=== PATIENT | female | born 1960 | race Caucasian/White ===

== ENCOUNTER 2017-03-22 05:21 | Inpatient (IN) | payer MEDICAID ==
[2017-03-22] MEDS ORDERED: Acetaminophen 500 MG Tab PO ONE (05:30)
[2017-03-22] MEDS ORDERED: Celecoxib 200 MG Cap PO ONE (05:30)
[2017-03-22] MEDS ORDERED: Dextrose 5%-Lactated Ringers 1,000 ML IV SCH (06:00)
[2017-03-22] MEDS ORDERED: Rocuronium 50 MG/5 ML Vial ONE ×2 (06:03→09:41)
[2017-03-22] MEDS ORDERED: Propofol 200 MG/20 ML SDV ONE (06:03)
[2017-03-22] MEDS ORDERED: Ondansetron 4 MG/2 ML SDV ONE (06:03)
[2017-03-22] MEDS ORDERED: Neostigmine Methylsulfate 1 MG/ML 5 ML Syringe ONE (06:03)
[2017-03-22] MEDS ORDERED: Succinylcholine 200 MG/10 ML MDV ONE (06:03)
[2017-03-22] MEDS ORDERED: Glycopyrrolate 0.2 MG/ML 5 ML MDV ONE (06:03)
[2017-03-22] MEDS ORDERED: Dexamethasone 4 MG/ML SDV ONE (06:03)
[2017-03-22] MEDS ORDERED: Meropenem 500 MG SDV ONE (06:55)
[2017-03-22] MEDS ORDERED: HYDROmorphone/Normal Saline 15 MG/30 ML PCA IV PRN (07:40)
[2017-03-22] MEDS ORDERED: Naloxone 0.4 MG/ML SDV IVPUSH PRN (07:40)
[2017-03-22] MEDS ORDERED: Ketamine 500 MG/5 ML MDV IV SCH (07:45)
[2017-03-22] MEDS ORDERED: Meropenem 500 MG in Sodium Chloride 0.9% 50 ML IV ONE (07:45)
[2017-03-22] MEDS ORDERED: Lidocaine 2% 100 MG/5 ML Syringe IVPUSH ONE (07:45)
[2017-03-22] MEDS ORDERED: Scopolamine 1.5 MG Transdermal Patch ONE (08:31)
[2017-03-22] MEDS ORDERED: Lactated Ringers 1,000 ML ONE (10:01)
[2017-03-22] MEDS ORDERED: hydrOXYzine HCl 100 MG/2 ML SDV IM ONE (11:10)
[2017-03-22] MEDS ORDERED: fentaNYL 100 MCG/2 ML SDV IVPUSH ONE (11:13)
[2017-03-22] MEDS ORDERED: hydrOXYzine HCl 25 MG Tab PO PRN (12:23)
[2017-03-22] MEDS ORDERED: hydrOXYzine HCl 100 MG/2 ML SDV IM PRN (12:24)
[2017-03-22] MEDS ORDERED: Cyclobenzaprine 10 MG Tab PO PRN (12:24)
[2017-03-22] MEDS ORDERED: Ondansetron 4 MG/2 ML SDV IVPUSH PRN (12:25)
[2017-03-22] MEDS: Meropenem 500 MG in Sodium Chloride 0.9% 50 ML IV SCH ×2 (13:01→18:07)
[2017-03-22] MEDS: Famotidine 20 MG/2 ML SDV IV SCH (14:20)
[2017-03-22] MEDS: Lidocaine 0.4%/D5W 2 GM/500 ML BAG IV SCH (14:21)
[2017-03-22] MEDS: Acetaminophen 1,000 MG in Premix Bag 1 BAG IV SCH ×2 (14:21→19:55)
[2017-03-22] MEDS: Dextrose 5%-Lactated Ringers 1,000 ML IV SCH ×2 (16:09→22:54)
[2017-03-22] MEDS: VERIFY SCOPOLAMINE PATCH TOP SCH (16:09)
[2017-03-22] MEDS ORDERED: Albuterol/Ipratropium 3.0-0.5 MG/3 ML Neb Soln NEB PRN (21:02)
[2017-03-22] MEDS: Albuterol/Ipratropium 3.0-0.5 MG/3 ML Neb Soln NEB SCH (21:16)
[2017-03-23] MEDS: Lidocaine 0.4%/D5W 2 GM/500 ML BAG IV SCH (01:17)
[2017-03-23] MEDS: Famotidine 20 MG/2 ML SDV IV SCH ×2 (01:17→12:52)
[2017-03-23] MEDS: Meropenem 500 MG in Sodium Chloride 0.9% 50 ML IV SCH ×2 (01:17→06:17)
[2017-03-23] MEDS: Acetaminophen 1,000 MG in Premix Bag 1 BAG IV SCH (01:18)
[2017-03-23] MEDS: Dextrose 5%-Lactated Ringers 1,000 ML IV SCH (05:31)
[2017-03-23] MEDS: Albuterol/Ipratropium 3.0-0.5 MG/3 ML Neb Soln NEB SCH ×4 (07:11→20:46)
[2017-03-23] MEDS: Celecoxib 200 MG Cap PO SCH (08:04)
[2017-03-23] MEDS: Acetaminophen 500 MG Tab PO SCH ×3 (08:04→20:46)
[2017-03-23] MEDS: VERIFY SCOPOLAMINE PATCH TOP SCH (08:05)
[2017-03-23] MEDS ORDERED: Dextrose 5%-Lactated Ringers 1,000 ML IV SCH (08:50)
[2017-03-23] MEDS ORDERED: Nicotine 14 MG/24 Hr Patch TRDERM PRN (08:54)
[2017-03-23] MEDS ORDERED: Nicotine Polacrilex 2 MG Gum CHEW PRN (08:55)
[2017-03-23] MEDS ORDERED: Benzocaine/Cetylpyridinium/Menthol Lozenge MUCMEM PRN (08:57)
[2017-03-23] MEDS ORDERED: Cetirizine 10 MG Tab PO PRN (08:58)
[2017-03-23] MEDS ORDERED: Diclofenac Sodium 1% Gel 100 GM Tube TOP PRN (08:58)
[2017-03-23] MEDS ORDERED: Non-Formulary Medication 1 Each (Nicotine Polacrilex [Nicotine Lozenge] 2 MG) BC PRN (08:58)
[2017-03-23] MEDS: amLODIPine 10 MG Tab PO SCH (09:32)
[2017-03-23] MEDS: OXcarbazepine 300 MG Tab PO SCH ×2 (09:32→20:45)
[2017-03-23] MEDS: HYDROmorphone 2 MG Tab PO PRN ×2 (17:45→23:55)
--- NOTE | 2017-03-23 18:17 | PN ---
DATE OF SERVICE: 03/23/2017 SUBJECTIVE: Ally is postop day #1. She is sitting up in the chair. She did have an episode last evening where she started coughing, had a coarse rhonchi tight cough. She was started on DuoNeb and she has been doing better with the medication. Temp max of 99.1. She had 2395 mL via Moon catheter. Oral intake n.p.o. She reports her pain controlled. Would like to start on some nicotine lozenges or gum and reports a sore throat. REVIEW OF SYSTEMS: Remainder of review of systems negative for any pertinent positives and negatives. OBJECTIVE: GENERAL: Ally Madera is a pleasant 56-year-old female. She is alert and orientated. VITAL SIGNS: TPR is 99.1, 81, 16, blood pressure 142/62. HEENT: Negative. NECK: Supple. HEART: Regular rate and rhythm. LUNGS: Clear. ABDOMEN: Dressings dry and intact. Abdominal binder is on. EXTREMITIES: Without peripheral edema. ASSESSMENT: Exploratory laparotomy with release of small bowel obstruction, small bowel resection, incisional hernia repair, and umbilical hernia repair with mesh. Date of surgery 03/22/2017, Jg Calles MD. PLAN: 1. Decrease IV rate to 100 mL per hour. 2. Discontinue Moon. 3. Full liquid diet. 4. Dressing off leaving Aquacel on. 5. May shower. 6. Cepacol lozenges at bedside, use as directed. 7. Nicotine patch 14 mg, use as directed. NICOrelief 2 mg chewable, chew every 1 hour p.r.n. on nicotine craving, Norvasc 10 mg p.o. daily, Zyrtec 10 mg p.o. daily p.r.n., Voltaren 1% gel, apply q.i.d. as needed to affected area. 8. Good pulmonary toilet encouraged. 9. We will evaluate p.r.n. or in a.m. Shanika Matthews PA-C /[id number]
[2017-03-24] MEDS: Acetaminophen 500 MG Tab PO SCH ×2 (03:16→07:59)
[2017-03-24] MEDS: Albuterol/Ipratropium 3.0-0.5 MG/3 ML Neb Soln NEB SCH (07:34)
[2017-03-24 07:51] VITALS: BP 127/58
[2017-03-24] MEDS: Celecoxib 200 MG Cap PO SCH (07:59)
[2017-03-24] MEDS: VERIFY SCOPOLAMINE PATCH TOP SCH (08:55)
[2017-03-24] MEDS: amLODIPine 10 MG Tab PO SCH (08:57)
[2017-03-24] MEDS: OXcarbazepine 300 MG Tab PO SCH (08:57)
[2017-03-24] MEDS: HYDROmorphone 2 MG Tab PO PRN (08:58)
[2017-03-24] MEDS ORDERED: Magnesium Hydroxide 400 MG/5 ML Susp 30 ML Cup PO ONE (10:00)
--- NOTE | 2017-03-24 12:47 | DISCH ---
ADMISSION DIAGNOSES: Partial small bowel obstruction, incisional hernia, B12 deficiency, major depression, Raynaud syndrome, and tobacco use disorder. DISCHARGE DIAGNOSES: Exploratory laparotomy with lysis of extensive adhesions and small bowel resection, repair of incarcerated recurrent incisional hernia, repair of incarcerated umbilical hernia, and placement of Interceed mesh for partial adhesive small bowel obstruction, recurrent incarcerated incisional hernia, and incarcerated umbilical hernia. Date of surgery 03/22/2017, Jg Calles MD. HISTORY: Ally Madera is a pleasant 56-year-old female with chronic abdominal pain and hernias. After preoperative evaluation and discussion of possible risks and possible complications, she wished to proceed with surgical procedure. HOSPITAL COURSE: Ally had her surgery on 03/22/2017. She had no operative complications. On postop day #1, she was started on oral pain medication, and she was started on a full liquid diet. Her activity was good. Her pain was well managed. She was prescribed DuoNebs for respiratory prophylaxis, history of hypoxia and acute respiratory failure postoperatively at the time of her last surgery. Her activity was good. Vital signs were stable. She was able to be discharged to home on 03/24/2017. PHYSICAL EXAMINATION: GENERAL: Ally Madera is a pleasant 56-year-old female. VITAL SIGNS: Height is 5 feet 3 inches. Weight is 148 pounds. TPR is 98, 87, 16, and blood pressure 127/58. HEENT: Negative. NECK: Supple. HEART: Regular rate and rhythm. LUNGS: Clear. ABDOMEN: Qian in place. Abdominal binder is on. EXTREMITIES: Without peripheral edema. DISPOSITION: Discharged to home. CONDITION: Stable and improving. FOLLOWUP APPOINTMENT: With Shanika Matthews PA-C, at [place], [place], on 04/01/2017 at 10 a.m. DISCHARGE MEDICATIONS: New prescriptions; 1. Tylenol Extra Strength 1000 mg oral q.6 hours p.r.n. lesser pain. 2. Celebrex 200 mg oral daily, #14. 3. Dilaudid 2 mg 1 to 2 every 4 hours p.r.n. pain, #50. 4. Milk of magnesia 30 mL to take one when she gets home today and repeat in a.m. for bowel stimulation. To resume her home medications of Zyrtec 10 mg daily, Voltaren 1% gel topical 4 times a day, ibuprofen 400 mg every 6 hours p.r.n., nicotine lozenges 2 mg buccal every hour as needed for nicotine craving, Trileptal 600 mg oral twice daily, omeprazole 80 mg oral at bedtime, ranitidine 300 mg oral daily, Carafate 1 gram 4 times a day, Norvasc 10 mg oral daily, and Benadryl 25 mg as needed p.r.n. allergies. DISCHARGE DIET: Usual diet as tolerated. Drink 8 to 10 glasses of water a day. ACTIVITY: No lifting greater than 10 pounds for 8 weeks[address] Driving, do not drive while on pain medication. Shower/bathing, may shower. DISCHARGE INSTRUCTIONS: Notify provider if any fever, increased pain, swelling, drainage, nausea, or vomiting. Wear abdominal binder with pressure dressing for 8 weeks. Keep site clean and dry. Use incentive spirometer 10 times every hour while awake.
--- NOTE | 2017-03-28 11:01 | OR ---
DATE OF PROCEDURE: 03/22/2017 PREOPERATIVE DIAGNOSES: 1. Partial adhesive small bowel obstruction. 2. Recurrent incarcerated incisional hernia. POSTOPERATIVE DIAGNOSES: 1. Partial adhesive small bowel obstruction. 2. Recurrent incarcerated incisional hernia. 3. Incarcerated umbilical hernia. OPERATIVE PROCEDURE: Exploratory laparotomy with lysis of extensive adhesions and: 1. Small bowel resection (46012). 2. Repair of incarcerated recurrent incisional hernia with mesh (79456, 61671). 3. Repair of incarcerated umbilical hernia with mesh (79990). 4. Placement of Interceed mesh to displace small bowel from abdominal and pelvic vargas to limit recurrent adhesion formation (07473). ANESTHESIA: General. MANAGER BODY: Shanika Matthews PA-C. INDICATIONS FOR PROCEDURE: A 56-year-old female presenting with recurrent incisional hernia. She also clinically appears to have a partial small bowel obstruction. She developed postprandial bloating and discomfort, particularly in the right lower quadrant. CT scan showed an area of matted bowel in that area. Plan is proceed with an exploratory laparotomy with lysis of adhesions with or without bowel resection and repair of a recurrent incarcerated incisional hernia as well. If a bowel resection is undertaken, if we are able to maintain a clean operative field, we would use mesh; otherwise, if it were not felt to be safe, we would do the repair of the hernia without mesh, making it high risk for recurrence. Otherwise, potential risks, including bleeding, infection, leaks from various GI tract closures, problems with bowel obstruction over time, once again recurrence of the hernia, mesh becoming infected, and remote possibility of cardiopulmonary, septic, or hemorrhagic complications leading to were discussed, and the patient wishes to proceed. DETAILS OF PROCEDURE: The patient was taken to the operating room, placed in the supine position. After general endotracheal anesthesia was induced, a Moon catheter was inserted and the abdomen prepped and draped. A midline incision which extended from roughly 2 fingerbreadths above the pubis to the umbilicus was then made and carried down through the skin and subcutaneous tissue. Incarcerated omentum and some small bowel was noted within the incisional hernia, which was located underneath that incision. These were eventually dissected free. The patient was also noted to have a separate incarcerated umbilical hernia, which contained some omentum in it as well. The patient at that point had quite extensive adhesions, and these were eventually lysed over an extended period of time. The distal ileum was noted to have particularly a tightened area of angulation, and this actually contained some probable solid GI contents within it, more or less confirming this is the likely site of the area of the obstruction. This area was densely scarred, and given this, that segment was then resected. Prior to that, meropenem sponges were placed along the edges of the incision and the bowel then divided proximally and distally with CEDRIC todd loads and the underlying mesentery with mesenteric loads. A [id number] enteroenterostomy was accomplished with internal firing of the CEDRIC todd load, the common opening closed transversely with the purple load, the angles anastomosed, and the mesenteric defect approximated with some 3-0 Vicryl stitch. At this point, all the instrumentation, gowns, and gloves used for the bowel resection were removed and the area irrigated with a meropenem-containing saline solution. It was felt at that point safe to proceed with mesh repair. A 19 x [address] hernia patch was then selected and soaked in antibiotic- containing saline solution. At roughly 5 cm intervals on its circumference, 2-0 Vicryl sutures were placed, and then stab wounds were then placed where these were to be pulled through, thus fixing the mesh away from the fascial edges of both hernias. The mesh was initially placed in intraperitoneal location with polypropylene side facing the abdominal wall. The upper half of the sutures were then placed, and then to limit recurrent adhesion formation, Interceed mesh was then placed along the pelvic sidewalls, up against the abdominal wall, including the underlying mesh to displace the small bowel from those structures. The remaining sutures were then pulled up, thus affixing the mesh in place. On the underlying shelf, Titanium tacking screws were then placed between the mesh and the abdominal wall circumferentially as well. At that point, no further problems were noted. The midline fascia was approximated with #2 Vicryl stitch, the subcutaneous tissue with 2 layers of 3-0 and 4-0 Vicryl stitch, and the skin with hugo. Dressing was applied. The patient was taken to the recovery room in satisfactory condition. Physician assistant hairstylist, Shanika Matthews played an essential role in assisting in this case, helping to position the patient, retract structures as needed, and suturing and cutting sutures when indicated. She also applied surgical hugo. Her presence improved patient's safety and decreased operative time. Jg Calles MD /[id number]
== END 2017-03-24 09:46 | disposition home or self-care (01) | DRG 330 ==
LOC: JP.MS 05:21 → JP.SDS 05:21 → EDSTATUS 07:30 → JP.2SS 10:30
PROVIDERS: ADMIT Surgery; ATTEND Surgery
PROC: 0DBB0ZZ Excision of Ileum, Open Approach (ICD-10-PCS; principal; 2017-03-22)
PROC: 0WUF0JZ Supplement Abdominal Wall with Synthetic Substitute, Open Approach (ICD-10-PCS; 2017-03-22)
PROC: 0WUF0JZ Supplement Abdominal Wall with Synthetic Substitute, Open Approach (ICD-10-PCS; 2017-03-22)
PROC: 0DNB0ZZ Release Ileum, Open Approach (ICD-10-PCS; 2017-03-22)
PROC: 0DNW0ZZ Release Peritoneum, Open Approach (ICD-10-PCS; 2017-03-22)
PROC: 3E0M05Z Introduction of Adhesion Barrier into Peritoneal Cavity, Open Approach (ICD-10-PCS; 2017-03-22)
DX: K56.51 Intestinal adhesions [bands], with partial obstruction (principal); K43.0 Incisional hernia with obstruction, without gangrene; K42.0 Umbilical hernia with obstruction, without gangrene; E53.8 Deficiency of other specified B group vitamins; I10 Essential (primary) hypertension; K21.9 Gastro-esophageal reflux disease without esophagitis; F32.9 Major depressive disorder, single episode, unspecified; Z88.1 Allergy status to other antibiotic agents; Z88.0 Allergy status to penicillin; Z88.2 Allergy status to sulfonamides; Z88.8 Allergy status to other drugs, medicaments and biological substances
CPT/HCPCS: 88302; 88307; 94640; 94762; A9270-GY; C1781; J0131; J0330; J1100; J1170; J2001; J2185; J2405; J2704; J2710; J3010; J3410; J7030; J7042; J7050; J7120; J7620; S0028

== ENCOUNTER 2019-07-25 06:27 | Day surgery (SDC) | payer MEDICAID ==
[2019-07-25] MEDS ORDERED: Bupivacaine 0.5% 30 ML SDV ONE (06:42)
[2019-07-25] MEDS ORDERED: Lactated Ringers 1,000 ML IV SCH (07:00)
[2019-07-25] MEDS ORDERED: Nozin Nasal Sanitizer NASBOTH ONE (07:00)
[2019-07-25] MEDS ORDERED: Propofol 200 MG/20 ML SDV ONE ×2 (07:27→08:17)
[2019-07-25] MEDS ORDERED: Midazolam 1 MG/ML 2 ML SDV ONE (07:27)
[2019-07-25] MEDS ORDERED: fentaNYL 100 MCG/2 ML SDV ONE (07:27)
[2019-07-25] MEDS ORDERED: Lidocaine 0.5% 50 ML SDV ONE (07:27)
[2019-07-25] MEDS ORDERED: Vancomycin 0.5 GM in Sodium Chloride 0.9% 250 ML IV ONE (07:30)
[2019-07-25 09:43] VITALS: BP 129/70; PULSE 68
--- NOTE | 2019-08-01 19:59 | OR ---
DATE OF PROCEDURE: 07/25/2019 SURGEON: Miguel Fu MD PREOPERATIVE DIAGNOSIS: Lipoma, right hand. POSTOPERATIVE DIAGNOSIS: Lipoma, right hand. PROCEDURE: Excision of lipoma, right hand, thenar eminence. ANESTHESIA: [place] block with sedation. INDICATIONS: Large mass, thenar eminence, right hand interfering with instrument engineer and causing paresthesias of the small finger. DESCRIPTION OF PROCEDURE: After adequate anesthesia was obtained, the hand was prepped and draped in a sterile fashion. Longitudinal incision was made along the ulnar border of the hypothenar eminence and carried down through the subcutaneous tissues. Immediately beneath the subcutaneous tissues which were significantly thinned was a readily identified encapsulated lipoma. Some strands of intrinsic muscle were covering it over the more lateral portion. This was dissected out bluntly laterally working around it, initially over the palmar aspect and then working around the ulnar and dorsal aspect. Then began to free it distally and continued to free it up working more dorsal and proximal avoiding interference with the ulnar nerve. In the process of dissecting this free, the capsule was ruptured and the remaining portions were then removed in a slightly more piecemeal fashion. Once it was excised, it showed a significant depression in the intrinsic muscles of the hand. Mass was approximately 3.5 x 3 x 2 cm. Wound was then irrigated. The tourniquet was then flashed and bleeding was controlled using electrocautery. It was irrigated once again and then closed using 3-0 nylon in interrupted fashion. Light compressive dressing was applied. The patient tolerated procedure very well. There were no complications. 0.25% Marcaine was infiltrated into the wound prior to application of the dressings. She was taken from the operating room in a stable condition. Miguel Fu MD /[id number] JUSTIN
== END 2019-07-25 10:11 | disposition home or self-care (01) ==
LOC: JP.SDS 06:27
PROVIDERS: ATTEND Specialist
DX: D17.79 Benign lipomatous neoplasm of other sites (principal); K21.9 Gastro-esophageal reflux disease without esophagitis; F32.9 Major depressive disorder, single episode, unspecified; F17.210 Nicotine dependence, cigarettes, uncomplicated; Z88.0 Allergy status to penicillin; Z88.2 Allergy status to sulfonamides; Z88.8 Allergy status to other drugs, medicaments and biological substances; Z88.5 Allergy status to narcotic agent; Z79.899 Other long term (current) drug therapy
CPT/HCPCS: 26111; 36415; 80053; 85027; 88304; A9270; J2001; J2250; J2704; J3010; J3370; J3490; J7050; J7120